=== PATIENT | male | born 1970 | race Hispanic/Latino ===

== ENCOUNTER 2018-03-19 12:06 | Outpatient (CLI) | payer BC ==
--- NOTE | 2018-03-19 13:09 | RAD ---
LEFT SHOULDER 3 VIEWS: HISTORY: Chronic left shoulder pain. FINDINGS: The AC and glenohumeral joints are fairly unremarkable. No signs of fracture or other bony findings. There appears to be some tiny subchondral cystic change involving the greater tuberosity. If the p atient has rotator cuff-type symptoms, further evaluation with MRI is suggested. IMPRESSION: No acute changes. POS: BATOOL
== END 2018-03-19 12:07 | disposition home or self-care (01) ==
LOC: MADRAD 12:06
PROVIDERS: ATTEND Family Medicine
DX: M25.512 Pain in left shoulder (principal)

== ENCOUNTER 2020-01-31 13:35 | Emergency (ER) | payer BC, OTHER ==
--- NOTE | 2020-01-31 14:41 | RAD ---
XR Ankle Rt 3 View STANDARD INDICATION: Right ankle injury COMPARISON: None. FINDINGS: Bones: Intact. Ankle mortise: Symmetric. Talar Dome: Intact. Subtalar joint: Normal. Visualized hindfoot: Normal. Periarticular soft tissues: Normal. IMPRESSION: 1. No acute fracture or subluxation demonstrated.
== END 2020-01-31 15:15 | disposition home or self-care (01) ==
LOC: MADERS 13:35
DX: S93.401A Sprain of unspecified ligament of right ankle, initial encounter (principal); W18.30XA Fall on same level, unspecified, initial encounter